=== PATIENT | female | born 2000 | race Caucasian/White ===

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

== ENCOUNTER 2023-09-24 08:04 | Emergency (ER) | payer BC, SELFPAY ==
--- NOTE | 2023-09-24 08:07 | ED.EAR ---
HPI - Ear Problem General Chief complaint: Ear Stated complaint: Rt Ear Irritation Time Seen by Provider: 09/24/23 08:07 Source: patient Mode of arrival: ambulatory Limitations: no limitations History of Present Illness HPI Narrative: Patient is a 23-year-old female who presents with right ear irritation for 2 days. Patient denies any congestion, sore throat, cough, fever, chills, nausea, vomiting, diarrhea. Has taken 1 dose of Tylenol. States she normally gets a sinus infection 3 times ear. Does not take any allergy medicine. MD Complaint: ear pain Related Data Home Medications Medication Instructions Recorded Confirmed norethindrone 1.5 mg-ethinyl 1 tablet PO DAILY 09/24/23 09/24/23 estradiol 30 mcg(21)/iron 75 mg(7) tablet (Junel FE 1.5/ (28)) Allergies Allergy/AdvReac Type Severity Reaction Status Date / Time No Known Allergies Allergy Verified 09/24/23 08:08 Review of Systems Review of Systems: All systems reviewed & are unremarkable except as noted in HPI and below Constitutional: Constitutional: Denies body ache(s), Denies chills, Denies fever(s), Denies headache(s) and Denies malaise Eyes: Eyes: Denies blurry vision, Denies eye discharge and Denies irritation ENT: Reports otalgia, Denies headache(s), Denies nasal congestion, Denies nasal discharge and Denies sore throat Cardiovascular: Cardiovascular: Denies chest pain, Denies edema, Denies palpitations and Denies dyspnea on exertion Respiratory: Respiratory: Denies cough and Denies dyspnea on exertion Gastrointestinal: Gastrointestinal: Denies abdominal pain, Denies diarrhea, Denies nausea and Denies vomiting Musculoskeletal: Musculoskeletal: Denies back pain, Denies arthralgias and Denies muscle weakness Integumentary/Breasts: Skin/Breast: Denies pruritus and Denies rash Neurologic: Denies headache(s) Psychiatric: Psychiatric: Reports no additional psychiatric complaints Endocrine: Endocrine: Denies palpitations PMFSH Comments At time of signature, agree with nursing past medical, surgical, social and family history. There is no relevant family history pertinent to the presenting complaint? Exam Const: General: cooperative, healthy appearing, no acute distress and well nourished Nutritional Appearance: well nourished Orientation/consciousness: patient oriented x3 Limitations: no limitations HENMT: Head: normal to inspection, normocephalic and atraumatic Ears: hearing grossly normal bilaterally, TM normal on the left, EAC's normal, no periauricular adenopathy and TM abnormal wth effusion serous on the right Face/Nose/Sinus: Normal external nose present, Normal nares present, Normal nasal mucous membranes and turbinates present, No nasal discharge present, normal facial exam and sinuses nontender Face and sinus: normal facial exam and sinuses nontender Mouth: Yes Normal oral and palatal mucosa present, Yes lip normal, Yes tongue normal and Yes moist mucous membranes Throat: uvula midline, abnormal tonsil bilateral erythema and hypertrophy 3+ and posterior oropharynx abnormal erythema Eyes: General: appearance normal, both eyes and all related structures Alignment and Position: alignment normal and position normal Eyelids: eyelids normal Pupils: Equal, round and reactive pupils present EOM: EOMs intact bilaterally Neck: Neck: normal visual inspection, full ROM, no lymphadenopathy and supple Chest: Chest palpation & inspection: normal inspection of the chest Resp: Effort & Inspection: normal respiratory effort and able to speak in complete sentences Auscultation: clear to auscultation bilaterally, no crackles, no rales, no rhonchi and no wheezes Cardio: Rate: regular rate Rhythm: regular rhythm Heart sounds: S1 normal heart sound present and S2 normal heart sound present Skin: General skin exam: normal color and no rashes or lesions noted Neuro: General: patient oriented x3 and moves all extremities Cranial nerves: Yes Equal,
[2023-09-24 08:15] VITALS: BP 136/74; PULSE 64; RESP 16; TEMP 36.9; O2SAT 100
== END 2023-09-24 08:47 | disposition home or self-care (01) ==
PROVIDERS: Emergency Provider Nurse Practitioner Family
DX: H65.01 Acute serous otitis media, right ear (principal)
CPT/HCPCS: 87081; 87880; 99213; G0463